=== PATIENT | female | born 1985 | race African-American/Black ===

== ENCOUNTER 2019-08-31 12:06 | Emergency (ER) | payer BC ==
[2019-08-31 12:25] VITALS: BP 114/72
--- NOTE | 2019-08-31 14:34 | Emergency Department Report ---
Minor Respiratory - HPI Chief Complaint: Sore Throat Stated Complaint: COLD SX Time Seen by Provider: 08/31/19 14:22 Duration: 2 weeks Pain Location: Chest Severity: mild Minor Respiratory: Yes Sore Throat, Yes Able to Tolerate Fluids, Yes Cough, Yes Sick Contacts, No Rhinorrhea, No Ear Pain, No Hemoptysis, No Chest Pain, No Shortness of Breath, No Fever Other History: cough x 2 weeks, family with same. denies SOB, denies congestion. no recent travel ED Review of Systems ROS: Stated complaint: COLD SX Other details as noted in HPI Comment: All other systems reviewed and negative ENT: as per HPI Respiratory: see HPI ED Past Medical Hx - Past Medical History Previous Medical History?: No - Surgical History Past Surgical History?: No - Social History Smoking Status: Never Smoker Substance Use Type: None - Medications Home Medications: Home Medications Medication Instructions Recorded Confirmed Last Taken Type Loratadine 10 mg PO DAILY #30 tablet 08/31/19 Unknown Rx predniSONE [Deltasone] 40 mg PO QDAY #10 tab 08/31/19 Unknown Rx Minor Respiratory Exam - Exam General: Vital signs noted. No distress. Alert and acting appropriately. HEENT: Yes Moist Mucous Membranes, No Pharyngeal Erythema, No Pharyngeal Exudates, No Rhinorrhea, No Conjuctival Injection Neck: Yes Supple, No Adenopathy Lungs: Yes Good Air Exchange, Yes Cough, No Wheezes, No Ronchi, No Stridor, No Labored Respirations, No Retractions, No Use of Accessory Muscles, No Other Abn ormal Lung Sounds Heart: Yes Regular, No Murmur Abdomen: No Tenderness, No Peritoneal Signs Skin: No Rash, No Edema Neurologic: Alert and oriented, no deficits. Musculoskeletal: Unremarkable. ED Course Vital Signs 08/31/19 12:22 Temperature 97.8 F Pulse Rate 106 H Respiratory 16 Rate Blood Pressure 114/72 [Left] O2 Sat by Pulse 96 Oximetry ED Medical Decision Making - Medical Decision Making pt w/ cough x 2 weeks, family members with same no fevers, no SOB exam with clear lungs, normal heart, oropharynx clear discussed likely dx of viral bronchitis and supportive care with pcp fu - Differential Diagnosis bronchitis, unlikely pna, allergies Critical care attestation.: If time is entered above; I have spent that time in minutes in the direct care of this critically ill patient, excluding procedure time. ED Disposition Clinical Impression: Cough Disposition: DC- TO HOME OR SELFCARE Is pt being admited?: No Condition: Good Instructions: Acute Bronchitis (ED) Prescriptions: predniSONE [Deltasone] 40 mg PO QDAY #10 tab Loratadine 10 mg PO DAILY #30 tablet Referrals: DAVEY HALE MD [Staff Physician] - 3-5 Days Time of Disposition: 14:34
== END 2019-08-31 14:50 | disposition home or self-care (01) ==
LOC: ED 12:06
DX: J02.9 Acute pharyngitis, unspecified (principal); Z79.899 Other long term (current) drug therapy

== ENCOUNTER 2020-10-02 16:10 | Emergency (ER) | payer BC ==
--- NOTE | 2020-10-02 16:42 | Event Note ---
ED Screening Note Date of service: 10/02/20 Time: 16:41 ED Screening Note: Patient complains of bloody stools and left-sided abdominal pain x15 days Denies past medical history This initial assessment/diagnostic orders/clinical plan/treatment(s) is/are subject to change based on patients health status, clinical progression and re- assessment by fellow clinical providers in the ED. Further treatment and workup at subsequent clinical providers discretion. Patient/guardian urged not to elope from the ED as their condition may be serious if not clinically assessed and managed. Initial orders include: Labs
[2020-10-02 18:11] LABS: Alanine Aminotransferase 14 units/L (7-56); Albumin 4.1 g/dL (3.9-5); Blood Urea Nitrogen 6 mg/dL (7-17); Hemolysis Index 30
[2020-10-02 18:19] LABS: Basophils % (Auto) 0.2 % (0.0-1.8); Eosinophils # (Auto) 0.2 K/mm3 (0.0-0.4); Hematocrit 35.5 % (30.3-42.9); Hemoglobin 12.3 gm/dl (10.1-14.3); Lymphocytes # (Auto) 2.3 K/mm3 (1.2-5.4); Lymphocytes % (Auto) 22.9 % (13.4-35.0); Mean Corpuscular HGB Conc 35 % (30-34); Mean Corpuscular Volume 85 fl (79-97); Monocytes # (Auto) 0.5 K/mm3 (0.0-0.8); Platelet Count 279 K/mm3 (140-440); Red Blood Count 4.18 M/mm3 (3.65-5.03); Red Cell Distribution Width 12.9 % (13.2-15.2)
[2020-10-02 18:23] LABS: BUN/Creatinine Ratio 10
[2020-10-02 18:25] LABS: INR 1.1 (0.87-1.13)
[2020-10-02 18:35] LABS: Bilirubin,Urine NEG (Negative); Blood,Urine NEG (Negative); Color,Urine Colorless (Yellow); Protein,Urine <15 mg/dL mg/dL (Negative); Urobilinogen,Urine < 2.0 mg/dL (<2.0); WBC,Urine < 1.0 /HPF (0.0-6.0)
== END 2020-10-03 03:00 | disposition left against medical advice (07) ==
LOC: ED 16:10
DX: K92.1 Melena (principal); R10.9 Unspecified abdominal pain; Z53.21 Procedure and treatment not carried out due to patient leaving prior to being seen by health care provider
CPT/HCPCS: 36415; 80053; 81001; 83690; 84703; 85025; 85610; 85730